=== PATIENT | female | born 1980 | race Caucasian/White ===

== ENCOUNTER 2016-10-25 06:27 | Emergency (ER) | payer MEDICAID ==
[~2016-10-25] VITALS: Ht 165.1 cm; Wt 133.9 kg
[~2016-10-25 06:27] MED LIST: ALBU8.5H3 INH; ASPI500P3 PO; CLIN-60; CYCL10TA50; DOCU50CA6; FLUT12AE INH; HYDR-3138 PO; HYDR2TAB13 PO; IPRA4AER INH; METF-86; METH10TA; MORP5SUP PR; PROM25AM6 PO; PROM25TA10 PO; TIOT18CA INH; TRAM50TA2; albuterol; combivent; flovent
[2016-10-25] MEDS ORDERED: BECL8.7A5 INH (07:34)
[2016-10-25] MEDS ORDERED: SODIUM CHLORIDE 0.9% 1,000 ML IV ONE (07:39)
[2016-10-25] MEDS ORDERED: METOCLOPRAMIDE 5 MG/ML, 2ML IVPush ONE (08:00)
[2016-10-25] MEDS ORDERED: MORPHINE SULFATE 4 MG/ML, 1ML IVPush PRN (08:00)
[2016-10-25] MEDS ORDERED: SODIUM CHLORIDE 0.9% 1,000ML IVBOLUS ONE (08:00)
[2016-10-25] MEDS ORDERED: FAMOTIDINE 20 MG/2 ML IVP ONE (08:00)
[2016-10-25 08:14] LABS: HEMOGLOBIN 16.7 g/dL (11.7-16.4)
[2016-10-25 08:29] LABS: ASPARTATE AMINO TRANSFERASE 30 U/L (15-37); BLOOD UREA NITROGEN 13 mg/dL (7-18)
[2016-10-25] MEDS ORDERED: MORPHINE SULFATE 4 MG/ML, 1ML ONE (08:42)
[2016-10-25] MEDS ORDERED: FAMOTIDINE 20 MG/2 ML ONE (08:43)
[2016-10-25] MEDS ORDERED: METOCLOPRAMIDE 5 MG/ML, 2ML ONE (08:43)
[2016-10-25 09:15] LABS: DIFF TOTAL CELLS COUNTED 100 CELL DIFF
[2016-10-25 09:39] VITALS: BP 128/77
[2016-10-25 09:41] LABS: VERIFY COUNTS? YES
== END 2016-10-25 09:41 | disposition home or self-care (01) ==
LOC: ED 07:19
DX: R10.11 Right upper quadrant pain (principal); R11.0 Nausea; R19.7 Diarrhea, unspecified; E11.9 Type 2 diabetes mellitus without complications; J44.9 Chronic obstructive pulmonary disease, unspecified; J45.909 Unspecified asthma, uncomplicated; M06.9 Rheumatoid arthritis, unspecified; Z86.19 Personal history of other infectious and parasitic diseases
CPT/HCPCS: 36415; 71010; 76700; 80053; 81003; 83690; 85025; 85610; 85730; 93005; 96361; 96374; 96375; 99285; J2765; J7030; S0028

== ENCOUNTER 2016-11-14 03:52 | Emergency (ER) | payer MEDICAID ==
[~2016-11-14] VITALS: Ht 165.1 cm; Wt 132.6 kg
[~2016-11-14 03:52] MED LIST changes: +BECL8.7A5 INH
[2016-11-14] MEDS ORDERED: HYDR-3241 PO (04:54)
[2016-11-14] MEDS ORDERED: SODIUM CHLORIDE 0.9% 1,000ML IVBOLUS ONE (05:00)
[2016-11-14] MEDS ORDERED: MORPHINE SULFATE 4 MG/ML, 1ML IVPush PRN (05:00)
[2016-11-14] MEDS ORDERED: FAMOTIDINE 20 MG/2 ML IVP ONE (05:00)
[2016-11-14] MEDS ORDERED: SODIUM CHLORIDE 0.9% 1,000 ML IV ONE (05:00)
[2016-11-14] MEDS ORDERED: METOCLOPRAMIDE 5 MG/ML, 2ML IVPush ONE (05:00)
[2016-11-14] MEDS ORDERED: ONDANSETRON 2MG/ML, 2ML ONE (05:02)
[2016-11-14] MEDS ORDERED: MORPHINE SULFATE 4 MG/ML, 1ML ONE (05:02)
[2016-11-14] MEDS ORDERED: FAMOTIDINE 20 MG/2 ML ONE ×2 (05:02→05:28)
[2016-11-14] MEDS ORDERED: METOCLOPRAMIDE 5 MG/ML, 2ML ONE (05:04)
[2016-11-14 05:32] VITALS: BP 116/68
[2016-11-14 05:52] LABS: BLOOD UREA NITROGEN 17 mg/dL (7-18)
[2016-11-14 06:01] LABS: ASPARTATE AMINO TRANSFERASE 28 U/L (15-37)
== END 2016-11-14 07:09 | disposition home or self-care (01) ==
LOC: ED 06:01
DX: R10.11 Right upper quadrant pain (principal); R10.13 Epigastric pain; B18.2 Chronic viral hepatitis C; G89.29 Other chronic pain; G54.9 Nerve root and plexus disorder, unspecified; E66.9 Obesity, unspecified; E11.9 Type 2 diabetes mellitus without complications; J44.9 Chronic obstructive pulmonary disease, unspecified
CPT/HCPCS: 36415; 76700; 80053; 81001; 83690; 84703; 85025; 96361; 96374; 96375; 99285; J2765; J7030; S0028

== ENCOUNTER 2016-12-07 16:54 | Emergency (ER) | payer MEDICAID ==
[~2016-12-07] VITALS: Ht 167.6 cm; Wt 129.9 kg
[~2016-12-07 16:54] MED LIST changes: +HYDR-3241 PO
[2016-12-07 17:24] VITALS: BP 129/85
[2016-12-07] MEDS ORDERED: PROCHLORPERAZINE 5 MG/ML, 2ML IM ONE (19:00)
[2016-12-07] MEDS ORDERED: HYDROmorphone 1 MG/ML, 1ML IM ONE (19:00)
[2016-12-07] MEDS ORDERED: HYDROmorphone 1 MG/ML, 1ML ONE (19:14)
[2016-12-07] MEDS ORDERED: PROCHLORPERAZINE 5 MG/ML, 2ML ONE (19:16)
== END 2016-12-07 19:25 | disposition home or self-care (01) ==
LOC: ED 19:00
DX: M54.5 Low back pain (principal); M54.6 Pain in thoracic spine; G89.29 Other chronic pain; I10 Essential (primary) hypertension; E11.9 Type 2 diabetes mellitus without complications; M06.9 Rheumatoid arthritis, unspecified; M54.30 Sciatica, unspecified side; J44.9 Chronic obstructive pulmonary disease, unspecified; Z90.49 Acquired absence of other specified parts of digestive tract; F17.210 Nicotine dependence, cigarettes, uncomplicated
CPT/HCPCS: 96372; 99284; J0780; J1170

== ENCOUNTER 2016-12-11 15:22 | Emergency (ER) | payer MEDICAID ==
[~2016-12-11] VITALS: Ht 167.6 cm; Wt 130.2 kg
[2016-12-11 15:26] VITALS: BP 143/100
[2016-12-11] MEDS ORDERED: ACETAMINOPHEN 500 MG TABLET PO ONE (15:55)
[2016-12-11] MEDS ORDERED: METHOCARBAMOL 750 MG TABLET PO ONE (16:00)
[2016-12-11] MEDS ORDERED: HYDROmorphone 1 MG/ML, 1ML IM ONE (16:00)
== END 2016-12-11 16:11 | disposition left against medical advice (07) ==
LOC: ED 16:05
DX: G89.29 Other chronic pain (principal); M54.5 Low back pain; M54.6 Pain in thoracic spine; I10 Essential (primary) hypertension; E11.9 Type 2 diabetes mellitus without complications
CPT/HCPCS: 99281

== ENCOUNTER 2016-12-19 02:15 | Emergency (ER) | payer MEDICAID ==
[~2016-12-19] VITALS: Ht 175.3 cm; Wt 100.0 kg
[2016-12-19 02:52] VITALS: BP 109/80
== END 2016-12-19 03:21 | disposition home or self-care (01) ==
LOC: ED 03:00
DX: B37.2 Candidiasis of skin and nail (principal); I10 Essential (primary) hypertension; E11.9 Type 2 diabetes mellitus without complications; J44.9 Chronic obstructive pulmonary disease, unspecified; E66.01 Morbid (severe) obesity due to excess calories; Z90.49 Acquired absence of other specified parts of digestive tract
CPT/HCPCS: 99283

== ENCOUNTER 2017-01-06 18:36 | Emergency (ER) | payer MEDICAID ==
[~2017-01-06] VITALS: Ht 167.6 cm; Wt 129.9 kg
[2017-01-06 18:43] VITALS: BP 120/88
[2017-01-06] MEDS ORDERED: PHENAZOPYRIDINE 200 MG TABLET ONE (19:16)
[2017-01-06] MEDS ORDERED: PHENAZOPYRIDINE 200 MG TABLET PO ONE (19:30)
[2017-01-06 19:51] LABS: BLOOD UREA NITROGEN 16 mg/dL (7-18)
== END 2017-01-06 20:33 | disposition home or self-care (01) ==
LOC: ED 20:27
DX: R30.0 Dysuria (principal); I10 Essential (primary) hypertension; E11.9 Type 2 diabetes mellitus without complications; J44.9 Chronic obstructive pulmonary disease, unspecified; E66.01 Morbid (severe) obesity due to excess calories
CPT/HCPCS: 36415; 80048; 81001; 82040; 84703; 85025; 99284

== ENCOUNTER 2017-03-02 03:00 | Emergency (ER) | payer MEDICAID ==
[~2017-03-02] VITALS: Ht 167.6 cm; Wt 103.4 kg
[~2017-03-02 03:00] MED LIST changes: -HYDR2TAB13 PO; +HYDR2TAB29 PO
[2017-03-02 03:02] VITALS: BP 132/82
[2017-03-02] MEDS ORDERED: PROCHLORPERAZINE 5 MG/ML, 2ML ONE (04:47)
[2017-03-02] MEDS ORDERED: HYDROmorphone 1 MG/ML, 1ML ONE (04:47)
[2017-03-02] MEDS ORDERED: HYDROmorphone 1 MG/ML, 1ML IM ONE (05:00)
[2017-03-02] MEDS ORDERED: PROCHLORPERAZINE 5 MG/ML, 2ML IM ONE (05:00)
== END 2017-03-02 05:18 | disposition home or self-care (01) ==
LOC: ED 05:12
DX: M54.5 Low back pain (principal); I10 Essential (primary) hypertension; E11.9 Type 2 diabetes mellitus without complications; J44.9 Chronic obstructive pulmonary disease, unspecified; F17.200 Nicotine dependence, unspecified, uncomplicated; Z88.0 Allergy status to penicillin; Z88.5 Allergy status to narcotic agent; Z88.6 Allergy status to analgesic agent; Z88.8 Allergy status to other drugs, medicaments and biological substances
CPT/HCPCS: 96372; 99284; J0780; J1170; J7512

== ENCOUNTER 2017-03-24 21:57 | Emergency (ER) | payer MEDICAID ==
[~2017-03-24] VITALS: Ht 167.6 cm; Wt 127.0 kg
[~2017-03-24 21:57] MED LIST changes: -ALBU8.5H3 INH; +ALBU8.5H8 INH; -BECL8.7A5 INH; +BECL8.7A7 INH; -CLIN-60; +CLIN150C14; -HYDR-3138 PO; +HYDR-3237 PO; +METF-162; -METF-86
[2017-03-24 22:05] VITALS: BP 136/91
[2017-03-24] MEDS: LORazepam 1MG TABLET PO ONE ×2 (22:15→22:50)
[2017-03-24 22:25] LABS: HEMOGLOBIN 15.3 g/dL (11.7-16.4); WHITE BLOOD COUNT 8.5 x10^3/uL (3.4-10)
[2017-03-24] MEDS ORDERED: LORazepam 2 MG/ML, 1ML ONE (22:27)
[2017-03-24] MEDS ORDERED: SODIUM CHLORIDE FLUSH 10ML SYR IVF ONE (22:30)
[2017-03-24] MEDS ORDERED: SODIUM CHLORIDE 0.9% 1,000ML IVBOLUS ONE (22:30)
[2017-03-24] MEDS ORDERED: LORazepam 2 MG/ML, 1ML IVPush ONE (22:30)
[2017-03-24 22:36] LABS: BLOOD UREA NITROGEN 16 mg/dL (7-18)
[2017-03-24] MEDS ORDERED: LORazepam 1MG TABLET ONE (22:39)
[2017-03-24 22:43] LABS: ASPARTATE AMINO TRANSFERASE 24 U/L (15-37); IS PT STATUS REG ER OR PRE ER? YES
[2017-03-24 22:59] LABS: DAU SCREEN DISCLAIMER
== END 2017-03-24 23:49 | disposition home or self-care (01) ==
LOC: ED 23:00
DX: R00.2 Palpitations (principal); I10 Essential (primary) hypertension; M06.9 Rheumatoid arthritis, unspecified; E11.9 Type 2 diabetes mellitus without complications; J44.9 Chronic obstructive pulmonary disease, unspecified; Z88.5 Allergy status to narcotic agent; Z88.8 Allergy status to other drugs, medicaments and biological substances
CPT/HCPCS: 36415; 71020; 80053; 80307; 84436; 84443; 84484; 85025; 93005; 99285

== ENCOUNTER 2017-06-09 06:59 | Emergency (ER) | payer MEDICAID ==
[~2017-06-09] VITALS: Ht 170.2 cm; Wt 125.0 kg
[2017-06-09] MEDS ORDERED: SODIUM CHLORIDE 0.9% 1,000 ML IV ONE (07:34)
[2017-06-09] MEDS ORDERED: HYDROmorphone 1 MG/ML, 1ML ONE (07:51)
[2017-06-09] MEDS ORDERED: METOCLOPRAMIDE 5 MG/ML, 2ML ONE (07:52)
[2017-06-09 07:57] LABS: HEMATOCRIT 43.4 % (34.6-47.8); WHITE BLOOD COUNT 8.7 x10^3/uL (3.4-10)
[2017-06-09] MEDS ORDERED: METOCLOPRAMIDE 5 MG/ML, 2ML IVPush ONE (08:00)
[2017-06-09] MEDS ORDERED: HYDROmorphone 1 MG/ML, 1ML IVPush PRN (08:00)
[2017-06-09] MEDS ORDERED: SODIUM CHLORIDE 0.9% 1,000ML IVBOLUS ONE (08:00)
[2017-06-09] MEDS ORDERED: PROMETHAZINE 25 MG/ML, 1ML ONE (08:02)
[2017-06-09 08:09] LABS: BLOOD UREA NITROGEN 13 mg/dL (7-18)
[2017-06-09] MEDS ORDERED: PROMETHAZINE 25 MG/ML, 1ML IM ONE (08:30)
[2017-06-09] MEDS ORDERED: HYDROmorphone 1 MG/ML, 1ML IM ONE (08:30)
[2017-06-09 10:07] VITALS: BP 118/51
== END 2017-06-09 10:11 | disposition home or self-care (01) ==
LOC: ED 07:40
DX: G89.29 Other chronic pain (principal); M54.5 Low back pain; E11.9 Type 2 diabetes mellitus without complications; I10 Essential (primary) hypertension; J44.9 Chronic obstructive pulmonary disease, unspecified; M06.9 Rheumatoid arthritis, unspecified
CPT/HCPCS: 36415; 80048; 81003; 82040; 85025; 85651; 96372; 99284; J1170; J2550

== ENCOUNTER 2017-06-18 15:39 | Emergency (ER) | payer MEDICAID ==
[~2017-06-18] VITALS: Ht 170.2 cm; Wt 118.0 kg
[2017-06-18 15:45] VITALS: BP 112/78
[2017-06-18] MEDS ORDERED: METOCLOPRAMIDE 10MG TABLET PO ONE (16:47)
[2017-06-18] MEDS ORDERED: HYDROmorphone 1 MG/ML, 1ML IM ONE (17:00)
[2017-06-18] MEDS ORDERED: HYDROmorphone 1 MG/ML, 1ML ONE (17:08)
== END 2017-06-18 17:21 | disposition home or self-care (01) ==
LOC: ED 17:00
DX: S39.012A Strain of muscle, fascia and tendon of lower back, initial encounter (principal); S29.012A Strain of muscle and tendon of back wall of thorax, initial encounter; M51.34 Other intervertebral disc degeneration, thoracic region; M51.16 Intervertebral disc disorders with radiculopathy, lumbar region; J44.9 Chronic obstructive pulmonary disease, unspecified; M06.9 Rheumatoid arthritis, unspecified; F17.200 Nicotine dependence, unspecified, uncomplicated; F19.10 Other psychoactive substance abuse, uncomplicated; X58.XXXA Exposure to other specified factors, initial encounter; Y93.89 Activity, other specified; Y92.89 Other specified places as the place of occurrence of the external cause; Y99.8 Other external cause status; Z88.8 Allergy status to other drugs, medicaments and biological substances
CPT/HCPCS: 72050; 72072; 72110; 96372; 99284; J1170

== ENCOUNTER 2017-06-28 18:52 | Emergency (ER) | payer MEDICAID ==
[~2017-06-28] VITALS: Ht 170.2 cm; Wt 115.0 kg
[2017-06-28 20:41] LABS: HEMATOCRIT 44.3 % (34.6-47.8); HEMOGLOBIN 15.2 g/dL (11.7-16.4); WHITE BLOOD COUNT 10.3 x10^3/uL (3.4-10)
[2017-06-28 20:57] LABS: BLOOD UREA NITROGEN 11 mg/dL (7-18)
[2017-06-28 21:03] LABS: IS PT STATUS REG ER OR PRE ER? YES
[2017-06-28 21:30] VITALS: BP 114/78
== END 2017-06-28 21:41 | disposition left against medical advice (07) ==
LOC: ED 18:58
DX: R07.89 Other chest pain (principal); M79.602 Pain in left arm; J44.9 Chronic obstructive pulmonary disease, unspecified; E11.9 Type 2 diabetes mellitus without complications; G89.29 Other chronic pain; M06.9 Rheumatoid arthritis, unspecified; I10 Essential (primary) hypertension; E66.9 Obesity, unspecified
CPT/HCPCS: 36415; 71020; 72050; 80048; 82040; 84484; 85025; 93005; 99285

== ENCOUNTER 2017-07-03 20:05 | Emergency (ER) | payer MEDICAID ==
[~2017-07-03] VITALS: Ht 170.2 cm; Wt 115.9 kg
[2017-07-03 20:42] LABS: HEMATOCRIT 46.9 % (34.6-47.8); HEMOGLOBIN 16.1 g/dL (11.7-16.4); WHITE BLOOD COUNT 11.3 x10^3/uL (3.4-10)
[2017-07-03 20:55] LABS: ASPARTATE AMINO TRANSFERASE 20 U/L (15-37); BLOOD UREA NITROGEN 17 mg/dL (7-18)
[2017-07-03 22:40] VITALS: BP 142/78
== END 2017-07-03 23:48 | disposition home or self-care (01) ==
LOC: ED 22:14
DX: A09 Infectious gastroenteritis and colitis, unspecified (principal); E11.9 Type 2 diabetes mellitus without complications; E66.9 Obesity, unspecified; I10 Essential (primary) hypertension; J44.9 Chronic obstructive pulmonary disease, unspecified; M06.9 Rheumatoid arthritis, unspecified; G89.29 Other chronic pain; Z90.49 Acquired absence of other specified parts of digestive tract; Z88.0 Allergy status to penicillin; Z88.5 Allergy status to narcotic agent; Z88.6 Allergy status to analgesic agent
CPT/HCPCS: 36415; 76700; 80053; 81001; 83690; 84703; 85025; 87086; 99285

== ENCOUNTER 2017-07-20 20:12 | Emergency (ER) | payer MEDICAID ==
[~2017-07-20] VITALS: Ht 172.7 cm; Wt 133.9 kg
[2017-07-20 20:24] VITALS: BP 161/85
[2017-07-20] MEDS ORDERED: ALBUTEROL SULFATE 2.5 MG/3 ML NPPB ONE (21:00)
== END 2017-07-20 21:34 | disposition left against medical advice (07) ==
LOC: ED 20:40
DX: J02.8 Acute pharyngitis due to other specified organisms (principal); F17.210 Nicotine dependence, cigarettes, uncomplicated; G89.29 Other chronic pain; E11.9 Type 2 diabetes mellitus without complications; E66.9 Obesity, unspecified; I10 Essential (primary) hypertension; J44.9 Chronic obstructive pulmonary disease, unspecified; M06.9 Rheumatoid arthritis, unspecified; Z72.9 Problem related to lifestyle, unspecified
CPT/HCPCS: 99281

== ENCOUNTER 2017-09-15 15:27 | Emergency (ER) | payer MEDICAID ==
[~2017-09-15] VITALS: Ht 172.7 cm; Wt 123.7 kg
[2017-09-15] MEDS ORDERED: SODIUM CHLORIDE 0.9% 1,000 ML IV ONE (16:53)
[2017-09-15] MEDS ORDERED: SODIUM CHLORIDE FLUSH 10ML SYR IVF ONE (17:00)
[2017-09-15] MEDS ORDERED: DILT240C9 PO (17:21)
[2017-09-15 17:37] LABS: ALBUMIN 3.3 g/dL (3.4-5.0); ANION GAP 7 mmol/L (5-15); CALCIUM 8.4 mg/dL (8.5-10.1); CHLORIDE 110 mmol/L (98-107)
[2017-09-15 17:43] LABS: ALANINE AMINOTRANSFERASE 44 U/L (12-78); ALKALINE PHOSPHATASE 69 U/L (45-117); BILIRUBIN,TOTAL 0.3 mg/dL (0.2-1.0); CREATININE 1.11 mg/dL (0.55-1.02); TOTAL PROTEIN 7.1 g/dL (6.4-8.2)
[2017-09-15 18:06] LABS: BASOPHILS # (AUTO) 0.03 x10^3/uL (0-0.1); BASOPHILS % (AUTO) 0 % (0-1); EOSINOPHILS # (AUTO) 0.09 x10^3/uL (0-0.4); EOSINOPHILS % (AUTO) 1 % (1-7); LYMPHOCYTES # (AUTO) 2.27 x10^3/uL (1-3.4); LYMPHOCYTES % (AUTO) 27 % (22-44); MD NO; MEAN CORPUSCULAR HEMOGLOBIN 32.7 pg (27.0-34.8); MEAN PLATELET VOLUME 8.6 fL (7.4-10.4); MONOCYTES # (AUTO) 0.45 x10^3/uL (0.2-0.8); MONOCYTES % (AUTO) 5 % (2-9); NEUTROPHILS # (AUTO) 5.59 x10^3/uL (1.8-6.8); NEUTROPHILS % (AUTO) 66 % (42-75); PLATELET COUNT 229 x10^3/uL (130-400); RED BLOOD COUNT 4.58 x10^6/uL (3.82-5.3); RED CELL DISTRIBUTION WIDTH 13.6 % (9.6-15.2)
[2017-09-15 19:40] LABS: MICROSCOPIC INDICATED
[2017-09-15 19:43] LABS: CULTURE INDICATED? YES
[2017-09-15 20:22] VITALS: BP 112/74
== END 2017-09-15 20:25 | disposition home or self-care (01) ==
LOC: ED 19:16
DX: R11.2 Nausea with vomiting, unspecified (principal); R20.2 Paresthesia of skin; E11.9 Type 2 diabetes mellitus without complications; J44.9 Chronic obstructive pulmonary disease, unspecified; I10 Essential (primary) hypertension; E66.09 Other obesity due to excess calories; Z68.41 Body mass index [BMI] 40.0-44.9, adult
CPT/HCPCS: 36415; 74021; 80053; 81001; 83690; 84703; 85025; 87086; 96360; 96361; 99285; J7030

== ENCOUNTER 2017-09-29 16:26 | Emergency (ER) | payer MEDICAID ==
[~2017-09-29] VITALS: Ht 172.7 cm; Wt 126.9 kg
[~2017-09-29 16:26] MED LIST changes: +DILT240C9 PO
[2017-09-29 16:27] VITALS: BP 136/83
[2017-09-29] MEDS ORDERED: HYDROcodone/APAP 5/325 TABLET PO STA (16:55)
[2017-09-29] MEDS ORDERED: HYDROcodone/APAP 5/325 TABLET ONE (17:19)
== END 2017-09-29 18:12 | disposition home or self-care (01) ==
LOC: ED 18:05
DX: M77.9 Enthesopathy, unspecified (principal); E11.9 Type 2 diabetes mellitus without complications; I10 Essential (primary) hypertension; J44.9 Chronic obstructive pulmonary disease, unspecified; F17.200 Nicotine dependence, unspecified, uncomplicated
CPT/HCPCS: 99284

== ENCOUNTER 2017-12-31 20:49 | Emergency (ER) | payer MEDICAID ==
[~2017-12-31] VITALS: Ht 170.2 cm; Wt 132.0 kg
[2017-12-31 20:51] VITALS: BP 129/84
[2017-12-31] MEDS ORDERED: IBUPROFEN 200 MG TABLET ONE (21:12)
[2017-12-31] MEDS ORDERED: METHOCARBAMOL 750 MG TABLET ONE (21:12)
[2017-12-31] MEDS: IBUPROFEN 200 MG TABLET PO ONE ×2 (21:18→21:21)
[2017-12-31] MEDS ORDERED: METHOCARBAMOL 750 MG TABLET PO ONE (21:30)
== END 2017-12-31 21:52 | disposition home or self-care (01) ==
LOC: ED 21:16
DX: S39.012A Strain of muscle, fascia and tendon of lower back, initial encounter (principal); I10 Essential (primary) hypertension; J44.9 Chronic obstructive pulmonary disease, unspecified; E11.9 Type 2 diabetes mellitus without complications; E66.01 Morbid (severe) obesity due to excess calories; Z68.42 Body mass index [BMI] 45.0-49.9, adult; X58.XXXA Exposure to other specified factors, initial encounter; Y93.89 Activity, other specified; Y99.8 Other external cause status; Y92.89 Other specified places as the place of occurrence of the external cause
CPT/HCPCS: 93005; 99283

== ENCOUNTER 2018-01-02 12:27 | Emergency (ER) | payer MEDICAID ==
[~2018-01-02] VITALS: Ht 170.2 cm; Wt 131.8 kg
[2018-01-02 12:29] VITALS: BP 129/84
[2018-01-02] MEDS ORDERED: CYCLOBENZAPRINE 10 MG TABLET ONE (13:21)
[2018-01-02] MEDS ORDERED: HYDROcodone/APAP 5/325 TABLET ONE (13:21)
[2018-01-02] MEDS ORDERED: ALBU0.63 NEB (13:25)
[2018-01-02] MEDS ORDERED: METH750T2 PO (13:26)
[2018-01-02] MEDS ORDERED: IBUP-1222 PO (13:26)
[2018-01-02] MEDS ORDERED: HYDROcodone/APAP 5/325 TABLET PO ONE (13:30)
[2018-01-02] MEDS ORDERED: CYCLOBENZAPRINE 10 MG TABLET PO SCH (13:30)
== END 2018-01-02 14:40 | disposition home or self-care (01) ==
LOC: ED 13:00
DX: S39.012A Strain of muscle, fascia and tendon of lower back, initial encounter (principal); I10 Essential (primary) hypertension; J44.9 Chronic obstructive pulmonary disease, unspecified; M06.9 Rheumatoid arthritis, unspecified; F11.10 Opioid abuse, uncomplicated; Z86.19 Personal history of other infectious and parasitic diseases; X58.XXXA Exposure to other specified factors, initial encounter; Y93.89 Activity, other specified; Y92.89 Other specified places as the place of occurrence of the external cause; Y99.8 Other external cause status
CPT/HCPCS: 99283

== ENCOUNTER 2018-01-08 06:04 | Emergency (ER) | payer MEDICAID ==
[~2018-01-08] VITALS: Ht 170.2 cm; Wt 118.0 kg
[~2018-01-08 06:04] MED LIST changes: +ALBU0.63 NEB; +IBUP-1222 PO; +METH750T2 PO
[2018-01-08 07:05] LABS: BASOPHILS # (AUTO) 0.06 x10^3/uL (0-0.1); BASOPHILS % (AUTO) 1 % (0-1); EOSINOPHILS # (AUTO) 0.13 x10^3/uL (0-0.4); EOSINOPHILS % (AUTO) 2 % (1-7); LYMPHOCYTES # (AUTO) 1.77 x10^3/uL (1-3.4); LYMPHOCYTES % (AUTO) 22 % (22-44); MD NO; MEAN CORPUSCULAR HEMOGLOBIN 32.7 pg (27.0-34.8); MEAN CORPUSCULAR HGB CONC 33.8 g/dL (32.4-35.8); MEAN CORPUSCULAR VOLUME 96.6 fL (80-100); MEAN PLATELET VOLUME 7.3 fL (7.4-10.4); MONOCYTES # (AUTO) 0.38 x10^3/uL (0.2-0.8); MONOCYTES % (AUTO) 5 % (2-9); NEUTROPHILS # (AUTO) 5.57 x10^3/uL (1.8-6.8); NEUTROPHILS % (AUTO) 71 % (42-75); PLATELET COUNT 267 x10^3/uL (130-400); RED BLOOD COUNT 4.61 x10^6/uL (3.82-5.3); RED CELL DISTRIBUTION WIDTH 13.3 % (9.6-15.2)
[2018-01-08] MEDS ORDERED: ACETAMINOPHEN 325 MG TABLET ONE (07:13)
[2018-01-08] MEDS ORDERED: PROMETHAZINE 25 MG/ML, 1ML ONE (07:13)
[2018-01-08 07:16] LABS: ALANINE AMINOTRANSFERASE 32 U/L (12-78); ALBUMIN 3.5 g/dL (3.4-5.0); ANION GAP 7 mmol/L (5-15); CALCIUM 8.9 mg/dL (8.5-10.1); CHLORIDE 109 mmol/L (98-107); CREATININE 1.03 mg/dL (0.55-1.02)
[2018-01-08 07:21] LABS: ALKALINE PHOSPHATASE 66 U/L (45-117); BILIRUBIN,TOTAL 0.3 mg/dL (0.2-1.0); TOTAL PROTEIN 7.5 g/dL (6.4-8.2); TROPONIN I < 0.015 ng/mL (0.000-0.045)
[2018-01-08 07:29] VITALS: BP 121/73
[2018-01-08] MEDS ORDERED: PROMETHAZINE 25 MG/ML, 1ML IM ONE (07:30)
[2018-01-08] MEDS ORDERED: ACETAMINOPHEN 325 MG TABLET PO ONE (07:30)
== END 2018-01-08 08:23 | disposition home or self-care (01) ==
LOC: ED 08:22
DX: R00.2 Palpitations (principal); K29.00 Acute gastritis without bleeding; E66.01 Morbid (severe) obesity due to excess calories; I10 Essential (primary) hypertension; E11.9 Type 2 diabetes mellitus without complications; M19.90 Unspecified osteoarthritis, unspecified site; M06.9 Rheumatoid arthritis, unspecified; G89.29 Other chronic pain; J44.9 Chronic obstructive pulmonary disease, unspecified; Z68.41 Body mass index [BMI] 40.0-44.9, adult
CPT/HCPCS: 36415; 71045; 80053; 83690; 84484; 85025; 93005; 96372; 99285; J2550

== ENCOUNTER 2018-01-26 23:51 | Emergency (ER) | payer MEDICAID ==
[~2018-01-26] VITALS: Ht 170.2 cm; Wt 122.0 kg
[2018-01-27 00:17] LABS: BASOPHILS # (AUTO) 0.07 x10^3/uL (0-0.1); BASOPHILS % (AUTO) 1 % (0-1); EOSINOPHILS # (AUTO) 0.17 x10^3/uL (0-0.4); EOSINOPHILS % (AUTO) 2 % (1-7); LYMPHOCYTES # (AUTO) 2.77 x10^3/uL (1-3.4); LYMPHOCYTES % (AUTO) 28 % (22-44); MD NO; MEAN CORPUSCULAR HEMOGLOBIN 32.7 pg (27.0-34.8); MEAN CORPUSCULAR HGB CONC 34.2 g/dL (32.4-35.8); MEAN CORPUSCULAR VOLUME 95.5 fL (80-100); MEAN PLATELET VOLUME 7.6 fL (7.4-10.4); MONOCYTES # (AUTO) 0.56 x10^3/uL (0.2-0.8); MONOCYTES % (AUTO) 6 % (2-9); NEUTROPHILS # (AUTO) 6.24 x10^3/uL (1.8-6.8); NEUTROPHILS % (AUTO) 64 % (42-75); PLATELET COUNT 264 x10^3/uL (130-400); RED BLOOD COUNT 4.18 x10^6/uL (3.82-5.3); RED CELL DISTRIBUTION WIDTH 13.1 % (9.6-15.2)
[2018-01-27 00:27] LABS: ALANINE AMINOTRANSFERASE 27 U/L (12-78); ALBUMIN 3.2 g/dL (3.4-5.0); ANION GAP 6 mmol/L (5-15); CALCIUM 8.6 mg/dL (8.5-10.1); CHLORIDE 112 mmol/L (98-107); CREATININE 1.02 mg/dL (0.55-1.02); T4 (THYROXINE) 7.6 mcg/dL (4.8-13.9)
[2018-01-27] MEDS ORDERED: ACETAMINOPHEN 325 MG TABLET PO ONE (00:30)
[2018-01-27 00:32] LABS: ALKALINE PHOSPHATASE 69 U/L (45-117); BILIRUBIN,TOTAL < 0.1 mg/dL (0.2-1.0); TOTAL PROTEIN 6.9 g/dL (6.4-8.2); TROPONIN I < 0.015 ng/mL (0.000-0.045)
[2018-01-27] MEDS ORDERED: ACETAMINOPHEN 325 MG TABLET ONE (00:44)
[2018-01-27 00:48] VITALS: BP 141/74
== END 2018-01-27 01:03 | disposition home or self-care (01) ==
LOC: ED 23:59
DX: R00.2 Palpitations (principal); I10 Essential (primary) hypertension; E11.9 Type 2 diabetes mellitus without complications; J44.9 Chronic obstructive pulmonary disease, unspecified; I25.2 Old myocardial infarction; F17.210 Nicotine dependence, cigarettes, uncomplicated; Z86.19 Personal history of other infectious and parasitic diseases; Z79.899 Other long term (current) drug therapy
CPT/HCPCS: 36415; 80053; 80307; 83735; 84436; 84443; 84484; 84703; 85025; 93005; 99285

== ENCOUNTER 2018-09-07 23:48 | Emergency (ER) | payer MEDICAID ==
[~2018-09-07] VITALS: Ht 170.2 cm; Wt 136.4 kg
--- NOTE | 2018-09-08 | NUR ---
PT WHEELED TO ROOM WITH EDT.
--- NOTE | 2018-09-08 00:21 | NUR ---
Dr. Otto at bedside to evaluate pt.
--- NOTE | 2018-09-08 00:29 | NUR ---
Pt to imaging, with tech, via [place].
[2018-09-08 01:26] LABS: BASOPHILS # (AUTO) 0.03 x10^3/uL (0-0.1); BASOPHILS % (AUTO) 0 % (0-1); EOSINOPHILS # (AUTO) 0.15 x10^3/uL (0-0.4); EOSINOPHILS % (AUTO) 2 % (1-7); LYMPHOCYTES # (AUTO) 2.44 x10^3/uL (1-3.4); LYMPHOCYTES % (AUTO) 33 % (22-44); MD NO; MEAN CORPUSCULAR HEMOGLOBIN 32.5 pg (27.0-34.8); MEAN CORPUSCULAR HGB CONC 34.3 g/dL (32.4-35.8); MEAN CORPUSCULAR VOLUME 94.8 fL (80-100); MONOCYTES # (AUTO) 0.41 x10^3/uL (0.2-0.8); MONOCYTES % (AUTO) 6 % (2-9); NEUTROPHILS # (AUTO) 4.39 x10^3/uL (1.8-6.8); NEUTROPHILS % (AUTO) 59 % (42-75); PLATELET COUNT 242 x10^3/uL (130-400); RED BLOOD COUNT 4.65 x10^6/uL (3.82-5.3); RED CELL DISTRIBUTION WIDTH 13.9 % (9.6-15.2)
[2018-09-08] MEDS ORDERED: HYDROcodone/APAP 5/325 TABLET PO ONE (01:30)
[2018-09-08] MEDS ORDERED: HYDROcodone/APAP 5/325 TABLET ONE (01:31)
--- NOTE | 2018-09-08 01:33 | NUR ---
PT MEDICATED PER MAR.
[2018-09-08 01:37] LABS: ALBUMIN 3.5 g/dL (3.4-5.0); ANION GAP 6 mmol/L (5-15); CALCIUM 8.6 mg/dL (8.5-10.1); CHLORIDE 109 mmol/L (98-107); CREATININE 1.08 mg/dL (0.55-1.02)
[2018-09-08 01:39] LABS: CREATINE KINASE, TOTAL 56 U/L (26-192)
[2018-09-08 02:45] VITALS: BP 126/69
--- NOTE | 2018-09-08 02:46 | NUR ---
Patient/Caregiver given discharge instructions and they have confirmed that they understand the instructions. Patient ambulatory with steady gait.
== END 2018-09-08 02:47 | disposition home or self-care (01) ==
LOC: ED 09-08 01:26
DX: M79.661 Pain in right lower leg (principal); I10 Essential (primary) hypertension; E11.9 Type 2 diabetes mellitus without complications; I25.2 Old myocardial infarction; G89.29 Other chronic pain; J44.9 Chronic obstructive pulmonary disease, unspecified; F17.200 Nicotine dependence, unspecified, uncomplicated; E66.01 Morbid (severe) obesity due to excess calories; M06.9 Rheumatoid arthritis, unspecified; Z68.42 Body mass index [BMI] 45.0-49.9, adult
CPT/HCPCS: 36415; 80048; 82040; 82550; 85025; 99284

== ENCOUNTER 2018-09-14 19:21 | Emergency (ER) | payer MEDICAID ==
[~2018-09-14] VITALS: Ht 170.2 cm; Wt 136.6 kg
[2018-09-14 20:23] LABS: BASOPHILS # (AUTO) 0.08 x10^3/uL (0-0.1); BASOPHILS % (AUTO) 1 % (0-1); EOSINOPHILS # (AUTO) 0.07 x10^3/uL (0-0.4); EOSINOPHILS % (AUTO) 1 % (1-7); LYMPHOCYTES # (AUTO) 1.65 x10^3/uL (1-3.4); LYMPHOCYTES % (AUTO) 15 % (22-44); MD NO; MEAN CORPUSCULAR HEMOGLOBIN 32.1 pg (27.0-34.8); MEAN CORPUSCULAR HGB CONC 33.6 g/dL (32.4-35.8); MEAN CORPUSCULAR VOLUME 95.7 fL (80-100); MONOCYTES # (AUTO) 0.43 x10^3/uL (0.2-0.8); MONOCYTES % (AUTO) 4 % (2-9); NEUTROPHILS # (AUTO) 8.73 x10^3/uL (1.8-6.8); NEUTROPHILS % (AUTO) 80 % (42-75); PLATELET COUNT 264 x10^3/uL (130-400); RED BLOOD COUNT 5.15 x10^6/uL (3.82-5.3); RED CELL DISTRIBUTION WIDTH 13.3 % (9.6-15.2)
[2018-09-14 20:27] LABS: ALBUMIN 4.2 g/dL (3.4-5.0); ANION GAP 8 mmol/L (5-15); CALCIUM 9.5 mg/dL (8.5-10.1); CHLORIDE 108 mmol/L (98-107); CREATININE 1.01 mg/dL (0.55-1.02)
--- NOTE | 2018-09-14 21:47 | NUR ---
PT BROUGHT BACK TO ROOM FROM LOBBY. ALL LAB AND IMAGING RESULTS BACK. AWAITING PROVIDER TO SEE PT
[2018-09-14 22:34] VITALS: BP 136/85
== END 2018-09-14 22:36 | disposition home or self-care (01) ==
LOC: ED 22:00
DX: E11.40 Type 2 diabetes mellitus with diabetic neuropathy, unspecified (principal); J44.9 Chronic obstructive pulmonary disease, unspecified; R20.2 Paresthesia of skin; F17.210 Nicotine dependence, cigarettes, uncomplicated; M06.9 Rheumatoid arthritis, unspecified; M54.30 Sciatica, unspecified side; E66.9 Obesity, unspecified; Z68.42 Body mass index [BMI] 45.0-49.9, adult; Z98.890 Other specified postprocedural states; Z90.49 Acquired absence of other specified parts of digestive tract; Z98.51 Tubal ligation status; Z86.19 Personal history of other infectious and parasitic diseases
CPT/HCPCS: 36415; 70450; 80048; 82040; 85025; 99284

== ENCOUNTER 2018-09-23 21:37 | Emergency (ER) | payer MEDICAID ==
[~2018-09-23] VITALS: Ht 170.2 cm; Wt 138.1 kg
--- NOTE | 2018-09-24 00:33 | NUR ---
pt called to room from lobby
[2018-09-24] MEDS ORDERED: DICYCLOMINE 10 MG/ML, 2ML ONE (01:00)
[2018-09-24] MEDS ORDERED: DICYCLOMINE 10 MG/ML, 2ML IM ONE (01:00)
[2018-09-24 01:13] VITALS: BP 111/87
[2018-09-24 01:36] LABS: BASOPHILS # (AUTO) 0.03 x10^3/uL (0-0.1); BASOPHILS % (AUTO) 0 % (0-1); EOSINOPHILS # (AUTO) 0.13 x10^3/uL (0-0.4); EOSINOPHILS % (AUTO) 2 % (1-7); LYMPHOCYTES # (AUTO) 2.32 x10^3/uL (1-3.4); LYMPHOCYTES % (AUTO) 27 % (22-44); MD NO; MEAN CORPUSCULAR HEMOGLOBIN 32.6 pg (27.0-34.8); MEAN CORPUSCULAR HGB CONC 34.3 g/dL (32.4-35.8); MEAN CORPUSCULAR VOLUME 95.3 fL (80-100); MEAN PLATELET VOLUME 7.4 fL (7.4-10.4); MONOCYTES % (AUTO) 4 % (2-9); NEUTROPHILS # (AUTO) 5.79 x10^3/uL (1.8-6.8); NEUTROPHILS % (AUTO) 68 % (42-75); PLATELET COUNT 263 x10^3/uL (130-400); RED BLOOD COUNT 4.36 x10^6/uL (3.82-5.3); RED CELL DISTRIBUTION WIDTH 13.7 % (9.6-15.2)
[2018-09-24 01:48] LABS: ALANINE AMINOTRANSFERASE 25 U/L (12-78); ALBUMIN 3.4 g/dL (3.4-5.0); ANION GAP 5 mmol/L (5-15); CALCIUM 8.7 mg/dL (8.5-10.1); CHLORIDE 113 mmol/L (98-107); CREATININE 0.83 mg/dL (0.55-1.02)
[2018-09-24 01:53] LABS: ALKALINE PHOSPHATASE 68 U/L (45-117); BILIRUBIN,TOTAL 0.2 mg/dL (0.2-1.0); TOTAL PROTEIN 6.8 g/dL (6.4-8.2)
--- NOTE | 2018-09-24 01:55 | NUR ---
Pt vomiting in room, MD aware
--- NOTE | 2018-09-24 02:00 | NUR ---
Pt in restroom upon RN reassesment.
--- NOTE | 2018-09-24 02:05 | NUR ---
Chart up for recheck
== END 2018-09-24 02:26 | disposition home or self-care (01) ==
LOC: ED 09-24 01:17
DX: K62.5 Hemorrhage of anus and rectum (principal); K64.5 Perianal venous thrombosis; J44.9 Chronic obstructive pulmonary disease, unspecified; I25.2 Old myocardial infarction; E66.01 Morbid (severe) obesity due to excess calories; Z68.42 Body mass index [BMI] 45.0-49.9, adult; Z72.9 Problem related to lifestyle, unspecified; Z86.19 Personal history of other infectious and parasitic diseases; Z90.49 Acquired absence of other specified parts of digestive tract; Z98.890 Other specified postprocedural states; Z98.51 Tubal ligation status
CPT/HCPCS: 36415; 80053; 83690; 84703; 85025; 96372; 99283; J0500

== ENCOUNTER 2018-12-06 17:07 | Emergency (ER) | payer MEDICAID ==
[~2018-12-06] VITALS: Ht 170.2 cm; Wt 141.0 kg
--- NOTE | 2018-12-06 17:23 | NUR ---
PT AMBULATORY WITH STEADY GAIT TO ROOM AT THIS TIME.
--- NOTE | 2018-12-06 17:29 | NUR ---
38 Y/O FEMALE PRESENTS TO ED WITH C/O "I WENT TO [facility] YESTERDAY BECAUSE I WAS HAVING ALL KINDS OF SX. MUCOUSY DIARRHEA, N/V. WHEN I WENT, THEY DID A D DIMER. THEY SAID THEY DIDN'T KNOW WHERE IT WAS. THEY DID AN IMAGE OF MY RIGHT LEG AND SAID IT WAS NEGATIVE. THE SYMPTOMS ARE GETTING WORSE. THE N/V AND PAIN WITH MY LEG HAVE GOTTEN WORSE." PT PLACED ON CONT PULSE OX,NIBP.
[2018-12-06 17:33] VITALS: BP 134/103
--- NOTE | 2018-12-06 17:33 | NUR ---
PER PT "THEY DIDN'T DO ANY OTHER IMAGES, JUST MY LEG. I JUST DON'T UNDERSTAND ANY OF THIS AT ALL."
--- NOTE | 2018-12-06 18:18 | NUR ---
Patient/Caregiver given discharge instructions and they have confirmed that they understand the instructions. Patient ambulatory with steady gait. PT LEFT WITH ALL PERSONAL BELONGINGS. PT EDUCATED REGARDING THE DIFFERENCE BETWEEN THE EMERGENCY ROOM AND PCP.
== END 2018-12-06 18:22 | disposition home or self-care (01) ==
LOC: ED 18:10
DX: M79.661 Pain in right lower leg (principal)
CPT/HCPCS: 99281